=== PATIENT | female | born 2000 | race Two or more races ===

== ENCOUNTER 2020-12-19 08:00 | Outpatient (CLI) | payer OTHER | END 2020-12-19 08:30 | disposition home or self-care (01) | LOC: PPH VACUNA 08:00 | DX: Z23 Encounter for immunization (principal) ==

== ENCOUNTER 2021-03-30 17:09 | Emergency (ER) | payer OTHER ==
[~2021-03-30] VITALS: Ht 157.5 cm; Wt 72.6 kg
[2021-03-30] MEDS ORDERED: KETO10TA2 PO (17:27)
== END 2021-03-30 18:21 | disposition home or self-care (01) ==
LOC: ER 17:09
DX: M79.662 Pain in left lower leg (principal); R60.9 Edema, unspecified; S82.892D Other fracture of left lower leg, subsequent encounter for closed fracture with routine healing; X58.XXXD Exposure to other specified factors, subsequent encounter